=== PATIENT | male | born 1960 | race Caucasian/White ===

== ENCOUNTER 2017-11-16 01:32 | Inpatient (IN) | payer BC, OTHER ==
[~2017-11-16] VITALS: Ht 177.8 cm; Wt 104.4 kg
[2017-11-16 03:36] VITALS: BP 139/93; PULSE 91; TEMP 36.8; O2SAT 96; Ht 177.8 cm; Wt 104.4 kg
[2017-11-16] MEDS ORDERED: OMEP20TA74 PO (03:51)
[2017-11-16] MEDS ORDERED: ONDANSETRON 8MG OD TAB PO PRN (04:15)
[2017-11-16] MEDS ORDERED: ACETAMINOPHEN 325 MG TAB PO PRN (04:15)
[2017-11-16] MEDS ORDERED: OPTIRAY 320 IV PRN (04:30)
[2017-11-16 04:44] LABS: HEMATOCRIT 38.1 % (42-52); HEMOGLOBIN 13.8 g/dL (14.0-18.0); MEAN CELL VOLUME 88.2 fL (80-100); MEAN CORPUSCULAR HEMOGLOBIN 31.9 pg (25-34); MEAN CORPUSCULAR HGB CONC 36.2 g/dl (32-36); MEAN PLATELET VOLUME 11.5 fL (7.4-10.4); PLATELET COUNT 115 K/uL (130-400); RED CELL DISTRIBUTION WIDTH CV 13.1 % (11.5-14.5); RED CELL DISTRIBUTION WIDTH SD 42.1 fL (36.4-46.3); WHITE BLOOD COUNT 7.79 K/uL (4.8-10.8)
--- NOTE | 2017-11-16 04:48 | History and Physical ---
History & Physical Date & Time of Service: Nov 16, 2017 at 04:26 Chief Complaint: Possible Seizure Activity Primary Care Physician: Valentino Roman II, PA-C History of Present Illness Source: patient, hospital records The patient is a 57-year-old male accepted in transfer [facility] emergency department concern regarding seizure-like activity The patient is a 57-year-old male with a PMH including SLE, GERD, sleep apnea, tinnitus, vertigo, and right vertebral artery calcification, who presented to [facility] ED with a second episode of seizure-like activity witnessed by his significant other. His first episode was on October 25, that occurred after he went to sleep, at which time he reportedly stopped breathing, was then turned onto his right side by his significant other, where he evacuated clear liquid out of his mouth, then had a shaking episode for a number of minutes, and then reportedly took 1 hour 17 minutes for his post-confusional state to resolve. With his first episode he did not have loss of bowel or bladder function. He reports that he did have 3 beers and a glass of wine prior to the first event. The second event occurred this afternoon prior to arrival to [facility] ED. He again was asleep, but did not have any alcohol intake preceding, had similar symptoms as the first time, but the duration this time was several minutes. Again there was no loss of bowel or bladder function. His family attempted to bring him to the hospital after the first episode, but when the ambulance arrived, he felt well, and did not want to go. He reports that today , his family did not give him the option of not go to the ED. He denies a family history of seizures. He does report some generalized muscle aches after the incident, in particular along bilateral sides of abdomen. He also reports biting the right side of his tongue. Family History noncontributory Social History Smoking Status: Never Smoker Smokeless Tobacco Use: No Alcohol Use: socially Drug Use: none Marital Status: in relationship Housing status: lives with significant other Immunizations History of Influenza Vaccine: Unknown History of Tetanus Vaccine?: Unknown History of Pneumococcal: Unknown History of Hepatitis B Vaccine: Unknown Multi-Drug Resistant Organisms History of MDRO: No Allergies Coded Allergies: No Known Allergies (Unverified , 11/16/17) Home Medications Scheduled Omeprazole (Ra Omeprazole), PO DAILY Review of Systems The patient denies chest pain, palpitations, shortness of breath, dyspnea on exertion, cough, lower extremity swelling, sore throat, fevers, chills, sweats, weight change, fatigue, nausea, vomiting, diarrhea , constipation, abdominal pain, pelvic pain, blood in urine or stool, dysuria, urinary frequency or urgency, lightheadedness , dizziness, headache, rash, imbalance, focal weakness back or neck pain, or night sweats. The review of systems is otherwise negative other than for that already noted above, and at least 10 systems have been reviewed. Physical Exam Vital Signs Date Time Temp Pulse Resp B/P (MAP) Pulse Ox O2 Delivery O2 Flow Rate FiO2 11/16/17 03:36 36.8 91 18 139/93 96 Room Air The patient is awake, alert and oriented 3, well developed and well nourished, normocephalic and atraumatic, lying in bed and in no acute distress. HEENT--PERRL, EOMI, mucous membranes and oropharynx moist. There is a small area of bruising, ecchymosis and surface abrasion along the right lateral aspect of tongue. Neck--supple. No JVD. No bruits. Thyroid normal, trachea midline, no adenopathy. Heart--normal S1 and S2. No murmurs, rubs or gallops. Lungs--clear bilaterally, no respiratory distress, no accessory muscle use. Abdomen--normal bowel sounds and soft. Nontender. Nondistended, no hernias or masses, no organomegaly, obese. Extremities--no cyanosis or clubbing. No edema. There are good distal pulses b/ l. Dermatologic--normal skin turgor, normal color, no abnormal lymph nodes, no rash. Neurologic--cranial nerves II through XII grossly intact. Rheumatologic--normal range of motion. Psychiatric--normal affect. Diagnostics Laboratory Results Results Past 24 Hours Test 11/16/17 03:49 11/16/17 04:07 11/16/17 04:22 Range/Units Creatine Kinase MB Ratio 0-3.0 Impression Assessment and Plan Seizure-like activity/tinnitus/vertigo-- The patient has arrived at 3:30AM to [facility]. The patient will be admitted to telemetry for serial cardiac enzymes, serial EKG's, cardiac rhythm monitoring and a 2-D echocardiogram with Dopplers. Nothing by mouth except medications Start aspirin 81 mg daily NSS + KCl 20 mEq at 75 ML's per hour Studies at [place] ED: CT of the head was negative except for question of dense right vertebral artery calcification. Chest x-ray was negative. EKG shows normal sinus rhythm at 85 bpm Significant Labs at [place] ED: Platelets 119, creatinine 1.4, glucose 119, ALT 78. Order a CTA of head and neck. Order MRI of brain combo. Order CBCD, CMP, magnesium, TSH, vitamin B12, folic acid, complement levels, walm-turvoa-ghyannhg DNA level, Lyme test, RPR, hemoglobin A1c, fasting lipid panel. SLE-- His methotrexate has been discontinued on 04/24/2017 by his rand cementer due to him having no symptoms, and reports having no symptoms since that time. Renal insufficiency-- Creatinine upon admission is 1.4. Place on IV fluids as noted above. Follow serial laboratories. GERD-- Change omeprazole 20 mg by mouth daily to pantoprazole 40 mg by mouth daily. Sleep apnea-- His diagnosis was to be confirmed with a sleep study scheduled this Wednesday, 6 days from now. Level of Care Telemetry Advanced Directives Existing Advance Directive: No Existing Living Will: No Existing Power of Gunstock Repairer: No Resuscitation Status FULL RESUSCITATION VTE Prophylaxis VTE Risk Assessment Done? Y/N: Yes Risk Level: Moderate Given or contraindicated: SCD's Social Service Consult None Apply
[2017-11-16] MEDS ORDERED: NSS + 20MEQ KCL 1000ML 1,000 ML IV SCH (05:00)
[2017-11-16 05:19] LABS: BASO % 0.3 %; BASO ABS # 0.02 K/uL (0-0.2); EOS % 0.5 %; EOS ABS # 0.04 K/uL (0-0.5); IG# 0.01 K/uL (0.00-0.02); LYMPH % 18.1 %; LYMPH ABS # 1.41 K/uL (1.2-3.4); MONO % 9.5 %; MONO ABS # 0.74 K/uL (0.11-0.59); NEUT % 71.5 %; NEUT ABS # 5.57 K/uL (1.4-6.5)
[2017-11-16 05:23] LABS: ALBUMIN 3.7 gm/dl (3.4-5.0); ALKALINE PHOSPHATASE 118 U/L (45-117); ALT/SGPT 76 U/L (12-78); AST/SGOT 34 U/L (15-37); BLOOD UREA NITROGEN 20 mg/dl (7-18); CALCIUM 8.3 mg/dl (8.5-10.1); CARBON DIOXIDE 23 mmol/L (21-32); CHOLESTEROL 152 mg/dl (0-200); CKMB 3.6 ng/ml (0.5-3.6); CREATININE 1.21 mg/dl (0.60-1.40); GLUCOSE 97 mg/dl (70-99); LDL CHOLESTEROL CALCULATED 96 mg/dl; POTASSIUM 4.2 mmol/L (3.5-5.1); SODIUM 137 mmol/L (136-145); TOTAL PROTEIN 7.2 gm/dl (6.4-8.2)
[2017-11-16] MEDS: ACETAMINOPHEN 325 MG TAB PO PRN ×2 (05:27→13:37)
[2017-11-16] MEDS ORDERED: COUGH DROP (SUGAR FREE) LOZ 24 LOZ/1 BOX LOZ ONE (05:28)
[2017-11-16] MEDS ORDERED: INFLUENZA VIRUS QUAD VACCINE 0.5 ML SYR IM. ONE (05:30)
[2017-11-16] MEDS ORDERED: INFLUENZA ADMINISTRATION CHARGE ONE (05:30)
[2017-11-16] MEDS ORDERED: NURSING DECISION MEDICATION ORDER SCH (05:45)
[2017-11-16 06:11] LABS: HEMOGLOBIN A1C 5.4 % (4.5-5.6)
[2017-11-16] MEDS ORDERED: COUGH DROP (SUGAR FREE) LOZ 24 LOZ/1 BOX LOZ PRN (06:30)
[2017-11-16 07:27] VITALS: BP 134/86; PULSE 78; TEMP 36.9; O2SAT 96
--- NOTE | 2017-11-16 07:55 | DIAGNOSTIC IMAGING REPORT ---
ABDOMINAL ULTRASOUND, RIGHT UPPER QUADRANT HISTORY: abnormal lft's. COMPARISON: None. FINDINGS: Pancreas: The pancreas demonstrates a normal echotexture. Liver: The liver is echogenic consistent with fatty change. Gallbladder: No gallbladder wall thickening. No gallstones. CBD: 4 mm. Right kidney: No hydronephrosis. IMPRESSION: 1. Mild hepatic steatosis. 2. Normal gallbladder. No gallstones. Electronically signed by: Harsh Salter M.D. 11/16/2017 7:53 AM Dictated Date/Time: 11/16/2017 7:46 AM
[2017-11-16] MEDS ORDERED: PANTOprazole SOD 40 MG TAB PO SCH (09:00)
[2017-11-16] MEDS ORDERED: ASPIRIN 81 MG ECTAB PO SCH (09:00)
--- NOTE | 2017-11-16 10:37 | EEG Procedure Note ---
EEG Procedure Note Date of Service Nov 16, 2017. Start / End Times Start Time: 8:01 AM End Time: 8:21 AM Referring Physician Doc Magaña History This is a 57-year-old male who presents with seizure-like activity. EEG for further evaluation of seizure etiology. Home Medication List Scheduled Omeprazole (Ra Omeprazole), PO DAILY Inpatient Medication List Current Inpatient Medications Medications (Trade) Dose Ordered Sig/Lucien Route Start Time Stop Time Status Last Admin Dose Admin Potassium Chloride/Sodium Chloride 1,000 ml @ 75 mls/hr [id number] IV 11/16/17 05:00 12/16/17 04:59 11/16/17 05:24 75 MLS/HR Acetaminophen (Tylenol Tab) 650 mg Q4H PRN PO 11/16/17 04:15 12/16/17 04:14 11/16/17 05:27 650 MG Aspirin (Ecotrin Tab) 81 mg QAM PO 11/16/17 09:00 12/16/17 08:59 11/16/17 08:43 81 MG Pantoprazole Sodium (Protonix Tab) 40 mg QAM PO 11/16/17 09:00 12/16/17 08:59 11/16/17 08:43 40 MG Ondansetron HCl (Zofran Odt) 8 mg Q6H PRN PO 11/16/17 04:15 12/16/17 04:14 Ioversol (Optiray 320) 100 ml UD PRN IV 11/16/17 04:30 11/20/17 04:29 Menthol (Nice Magda) 1 magda PRN PRN MAGDA 11/16/17 06:30 12/16/17 06:29 Description This is a 21 electrode EEG with a single channel dedicated to limited EKG. The electrodes were placed in accordance with the International 10-20 system. At the start of this recording the patient was an awake state. Background was well organized with a symmetric moderate amplitude mix of alpha and beta frequencies. There was a symmetric moderate amplitude well formed posterior dominant rhythm of 8-9 Hz that was reactive to eye opening and closure. Hyperventilation was not done. Photic stimulation at various frequencies did not produce any abnormalities. Sleep was indicated by vertex waves and symmetric sleep spindles. Interpretation This is a normal awake and asleep routine EEG. There was no electrographic seizures or epileptiform discharges. Clinical Correlation A normal EEG does not rule out epilepsy if there is a strong clinical suspicion.
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
[2017-11-16 12:59] VITALS: BP 175/93; PULSE 61; TEMP 37.3; O2SAT 98
[2017-11-16 13:02] LABS: CKMB 4.4 ng/ml (0.5-3.6)
--- NOTE | 2017-11-16 13:30 | DIAGNOSTIC IMAGING REPORT ---
HEAD CTA HISTORY: Seizure. TECHNIQUE: Multiaxial CT images of the head were performed after the intravenous administration of contrast to evaluate the major cerebral vessels. Maximum intensity projection images were also obtained. A dose lowering technique was utilized adhering to the principles of ALARA. COMPARISON: Outside hospital head CT 11/15/2017. FINDINGS: There is no mass, hematoma, midline shift, or acute infarct. Visualized intracranial internal carotid arteries, distal vertebral arteries, and basilar artery are widely patent. There is no significant stenosis, occlusion, or aneurysm seen within the bilateral ACAs, MCAs, or plant technician. The left METALLIC YARN SLITTING MACHINE OPERATOR is fed through the posterior communicating artery consistent with a normal variant. IMPRESSION: No significant stenosis, occlusion, or aneurysm within the ramona of [place]. Electronically signed by: Harsh Salter M.D. 11/16/2017 7:24 AM Dictated Date/Time: 11/16/2017 7:20 AM
--- NOTE | 2017-11-16 13:30 | DIAGNOSTIC IMAGING REPORT ---
CT ANGIOGRAM OF THE NECK CLINICAL HISTORY: Seizure. COMPARISON STUDY: No priors. TECHNIQUE: Following the IV administration of 93 of Optiray 320, CT angiogram of the neck was performed from the aortic arch to the skull base. Images are reviewed in the axial, sagittal, and coronal planes. 3-D MIPS images are created and assessed. IV contrast was administered without complication. All measurements were calculated based on NASCET criteria. A dose lowering technique was utilized adhering to the principles of ALARA. FINDINGS: Thoracic aorta: Visualized portions of the thoracic aorta are normal in caliber. The aortic arch demonstrates standard 3-vessel anatomy. Right carotid arterial system: The right common carotid artery is widely patent, as are the right internal and external carotid arteries. Left carotid arterial system: The left common carotid artery is widely patent, as are the left internal and external carotid arteries. Vertebral arteries: The vertebral arteries are widely patent bilaterally. The right vertebral artery is dominant. Subclavian arteries: Widely patent bilaterally. Intracranial vasculature: Clear as visualized. Jugular veins: Widely patent bilaterally. Brain parenchyma: The visualized brain parenchyma the skull base is within normal limits. Lung apices: Partially visualized upper lobe lung parenchyma appears clear. Soft tissues: The visualized pharyngeal soft tissues are normal in appearance noting angiographic phase technique. The oropharyngeal airway appears widely patent. The salivary and thyroid glands are normal in appearance. No cervical lymphadenopathy is seen. Skeletal structures: The visualized calvarium at the skull base appears intact. The imaged cervical spine is within normal limits. IMPRESSION: Unremarkable CT angiogram of the neck. Electronically signed by: Jaspal Ozuna M.D. 11/16/2017 7:45 AM Dictated Date/Time: 11/16/2017 7:41 AM
[2017-11-16 16:03] VITALS: BP 167/89; PULSE 83; TEMP 37.1; O2SAT 97
--- NOTE | 2017-11-16 16:33 | Discharge Instructions ---
Discharge Instructions Date of Service Nov 16, 2017. Admission Reason for Admission: Possible Seizure Activity Discharge Discharge Diagnosis / Problem: Likely Seizure Discharge Goals Goal(s): Decrease discomfort, Improve function, Increase independence Activity Recommendations Activity Limitations: resume your previous activity . Instructions / Follow-Up Instructions / Follow-Up Possible Seizure Activity: - Testing in the hospital has been unremarkable. MRI did not show any lack of blood flow or masses that could explain these episodes. However the description of these events do question possible seizures. - Recommend to keep your sleep study appointment as sleep apnea results in moments when you do not breath at night and poor sleep from underlying sleep apnea could cause seizures - You were seen by neurology and some options given. - Recommend to follow-up in the neurology clinic for possible ambulatory EEG especially if your sleep study does not reveal any findings. - Pending further work-up you may need to be placed on anti-seizure medications. This can be discussed at the neurology clinic. - You will need to be mindful of these events. So far they have only occurred at night and it is possible they could be from something else. However, if these are seizures they can happen in the daytime and more alarming when driving. Would recommend only short trips of driving until you follow-up. When able having someone else drive would be a safer option. Would definitely recommend against long distance driving. Current Hospital Diet Patient's current hospital diet: Regular Diet Discharge Diet Recommended Diet: Regular Diet Pending Studies Studies pending at discharge: no Laboratory Results Hemoglobin A1c Test 11/16/17 04:20 Range/Units Estimated Average Glucose 108 mg/dl Hemoglobin A1c 5.4 4.5-5.6 % Lipid Panel Test 11/16/17 04:20 Range/Units Triglycerides Level 96 0-150 mg/dl Cholesterol Level 152 0-200 mg/dl HDL Cholesterol 37 mg/dl Cholesterol/HDL Ratio 4.1 LDL Cholesterol, Calculated 96 mg/dl Medical Emergencies . Who to Call and When: Medical Emergencies: If at any time you feel your situation is an emergency, please call 911 immediately. . Non-Emergent Contact Non-Emergency issues call your: Primary Care Provider Call Non-Emergent contact if: you have a fever, your pain is concerning you, you have any medication questions . . "Provider Documentation" section prepared by Kenia Fernández. Attending Attestation - Pt seen/examined and discharge care plan d/w LETTY Fernández. I agree with her discharge instructions as outlined. Kenney Sheikh MD . VTE Core Measure Inpt VTE Proph given/why not?: SCD's
--- NOTE | 2017-11-16 17:17 | DIAGNOSTIC IMAGING REPORT ---
MRI OF THE BRAIN WITHOUT AND WITH IV CONTRAST SEIZURE PROTOCOL CLINICAL HISTORY: Seizure-like activity. COMPARISON STUDY: Head CT November 15, 2017 and CTA of the head November 16, 2017. TECHNIQUE: Utilizing a 1.5 Fina magnet and dedicated coil, multiplanar, multiecho imaging of the brain was performed pre and postcontrast administration. IV administration of 10.4 mL of Gadavist contrast was uneventful. Thin cut coronal T2 imaging was performed according to seizure protocol. FINDINGS: There are no foci of restricted diffusion. No acute intracranial hemorrhage, midline shift or mass effect is present. Brain volume is normal. Ventricular system is normal. Basilar cisterns are patent. There are no extra-axial collections. Flow-voids for the major intracranial vessels are present. There is no intracranial mass or pathologic enhancement. Scattered mild white matter T2 hypertense foci suggest small vessel disease. Calvarial signal is maintained. There is no MRI evidence for mesial temporal sclerosis. IMPRESSION: 1. No acute intracranial findings. 2. No intracranial mass or pathologic enhancement. 3. Mild small vessel disease. Unremarkable MRI of the brain for age. Electronically signed by: Josh Cody M.D. 11/16/2017 5:16 PM Dictated Date/Time: 11/16/2017 5:05 PM
[2017-11-16 17:21] VITALS: BP 167/89; PULSE 83; TEMP 37.1; O2SAT 97
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
[2017-11-18 13:33] LABS: ANTI-dsDNA RECOMBINANT 255X 4 IU/ML; COMPLEMENT C3 TC 44859W 98 MG/DL (90-180); COMPLEMENT C4 TC 44982E 16 MG/DL (16-47); COMPLEMENT TOTAL(CH50)**45328P 46 U/mL (31-60)
== END 2017-11-16 18:00 | disposition home or self-care (01) | DRG 101 ==
LOC: C.2T 03:34
PROVIDERS: ADMIT Hospitalist; ATTEND Internal Medicine
DX: R56.9 Unspecified convulsions (principal); M32.9 Systemic lupus erythematosus, unspecified; K21.9 Gastro-esophageal reflux disease without esophagitis; G47.33 Obstructive sleep apnea (adult) (pediatric)